=== PATIENT | female | born 1990 | race Caucasian/White ===

== ENCOUNTER → 2021-05-28 13:30 | Outpatient (BNVA) | payer OTHER, SELFPAY | PROVIDERS: Family Provider Internal Medicine; PCP Internal Medicine; Visit Provider Nurse Practitioner Women's Health | DX: Z12.4 Encounter for screening for malignant neoplasm of cervix (principal) | CPT/HCPCS: 88175 ==

== ENCOUNTER 2022-02-12 17:17 | Outpatient (CLI) | payer OTHER, SELFPAY ==
[2022-02-12 17:26] VITALS: RESP 16; TEMP 36.8
[2022-02-12 17:31] VITALS: BP 126/63; PULSE 78
[2022-02-12 17:46] VITALS: BP 121/60; PULSE 79
[2022-02-12 18:48] LABS: Total Volume, Urine 1275 mL
[2022-02-12 18:49] LABS: Urine Total Protein 7.3 mg/dL (0-150); Urine Total Protein 24 Hour 93.1 mg/24hr (0-150)
== END 2022-02-12 17:45 | disposition home or self-care (01) ==
LOC: OPOB 17:25 → OBGYN 17:25
PROVIDERS: Family Provider Internal Medicine; PCP Internal Medicine; Visit Provider Family Medicine
DX: O16.9 Unspecified maternal hypertension, unspecified trimester (principal); Z3A.00 Weeks of gestation of pregnancy not specified
CPT/HCPCS: 84156

== ENCOUNTER 2022-06-30 05:29 | Inpatient (IN) | payer OTHER, SELFPAY ==
--- NOTE | 2022-06-22 10:03 | P.ANESASSM_ITS ---
Pre-Anesthetic Assessment Height/Weight: Height 1.57 m Operation Date: 06/30/22 07:00 Proposed Procedures p Section With Tubal O34.219(Not Applicable) - Jenni Argueta MD Familial anesthetic complications: None Social No alcohol and No tobacco Exam alert, oriented x 3, clear to auscultation bilaterally and regular rate & rhythm Airway Mallampati: Class II Dentition: full Anesthetic Plan ASA status: 2 Anesthesia: Regional (specify below) (spinal) Risk of > 500 ml blood loss (7ml/kg in children): Yes, adequate IV access and fluids planned Medications/Allergies Home Medications Medication Instructions Recorded Confirmed Last Taken Type levonorgestrel 14 mcg/24 hrs (3 intrauterine 05/28/21 05/28/21 Unknown History yrs) 13.5 mg intrauterine device (Yamila) Allergies Allergy/AdvReac Type Severity Reaction Status Date / Time No Known Allergies Allergy Verified 05/28/21 13:08 [facility] Anesthesia Medical History (Updated 05/28/21 @ 13:10 by Kym Clark APN, RAH) No pertinent past medical history neghx:htn,dm,thyroid,dvt/pe PCP: Tory Ennis Surgical History (Updated 05/28/21 @ 11:46 by Kym Clark APN, RAH) History of section Primary low transverse section completed 12/06/[address] Kentrell Dejesus. Repeat low transverse section completed 10/06/[address] Sherita Machuca. Family History Grandfather Hypertension Stroke Great grandfather CAD (coronary artery disease) Great-grandfather Grandmother Hypertension Diabetes Great grandmother CAD (coronary artery disease) Great-grandmother Family/Other Diabetes Uncle CAD (coronary artery disease) Great uncle Cancer Aunt with colon cancer Data Anesthesia Cardiac Studies: No Data to Display
[2022-06-30] VITALS (13 sets, daily range): BP systolic 87–151; BP diastolic 40–87; PULSE 72–106; RESP 15–16; TEMP 36.2–36.8; O2SAT 97–99; BMI 43.0
[2022-06-30] MEDS: lactated ringers 1,000 ML 999 ML IV (06:00)
[2022-06-30 06:07] LABS: Hematocrit 41.3 % (37.0-47.0); Mean Corpuscular HGB Conc 33.9 g/dL (30.0-36.0); Mean Corpuscular Volume 94.5 fl (81-99); Mean Platelet Volume 10.6 fL (7.4-10.4); Platelet Count 225 10^3/cmm (130-400); Red Blood Count 4.37 10^6/uL (4.1-5.3); Red Cell Distribution Width 12.8 % (12.1-15.1)
[2022-06-30] MEDS: ceFAZolin 2,000 MG in sodium chloride 0.9% (plus) 50 ML 100 MG IV (06:34)
[2022-06-30] MEDS: citric acid-sodium citrate 30 mL UDC PO (06:35)
[2022-06-30] MEDS: famotidine 20 mg/2 mL INJ IVP (06:35)
[2022-06-30] MEDS: metoclopramide 5 mg/mL SDV 2 mL 10 MG IVP (06:35)
--- NOTE | 2022-06-30 06:55 | P.ANESUD_ITS ---
Pre-Anesthetic Update Pre-Anesthetic Assessment: Date of Surgery/Procedure: 06/30/22 Preop Janie gnosis: IUP Proposed Procedure: Operation Date: 06/30/22 07:00 Proposed Procedures p Section With Tubal O34.219(Not Applicable) - Jenni Argueta MD Any changes to Pre-Anesthetic Assessment?: No Last Intake: Intake Last Liquid Date 06/29/22 Last Liquid Time 23:45 Last Solid Date 06/29/22 Last Solid Time 23:15 Labs Last 48hrs: Short CBC 06/30/22 Range/Units 05:50 WBC 9.0 (4.0-10.0) 10^3/ uL Hgb 14.0 (11.5-15.3) g/dL Hct 41.3 (37.0-47.0) % MCV 94.5 (81-99) fl Plt Count 225 (130-400) 10^3/c mm Vitals: Temperature 98.2 F 02/12/22 17:26 Pulse Rate 96 06/30/22 05:56 Pulse Rhythm 06/30/22 06:23 Pulse Strength 3+ Normal 06/30/22 06:23 Respiratory Rate 16 06/30/22 05:58 Respiratory Effort Non-Labored 06/30/22 06:23 Respiratory Depth Normal 06/30/22 06:23 Respiratory Patter n 06/30/22 06:23 Blood Pressure 137/79 06/30/22 05:56 Oxygen Delivery Me thod 06/30/22 06:23 Exam: Pre-Anes Outpt Exam: alert and oriented x 3 Cardiac Studies: No Data to Display
--- NOTE | 2022-06-30 09:11 | P.OP_ITS ---
Operative Report Date of procedure: June 30, 2022 Pre-op diagnosis: IUP at 39 weeks 1 day gestation Repeat section Desired permanent surgical sterilization Post-op diagnosis: Same Procedure done: Repeat low transverse section Bilateral tubal ligation Specimens removed/disposition: Vertex female , Apgars 9 and 9, weight 3580 g, 7 pounds 14 ounces. Surgeon: Jenni Argueta MD Estimated blood loss (mL): 500 IV fluids (mL): 1,200 Urine output (mL): 200 Complications: None Procedure: After informed consent the patient was taken to the OR where spinal anesthesia was administered. She was prepped and draped in normal sterile fashion in dorsal supine position with a left lateral tilt. After adequate spinal anesthesia was verified, a Pfannenstiel skin incision was made through the previous scar and carried through to the underlying layer of fascia sharply. The fascial incision was then extended laterally using the Mayos. The fascia was grasped with Shu clamps and the underlying rectus muscles were dissected off. The peritoneum was entered bluntly and the incision site was manually stretched. The bladder blade was inserted. The vesicouterine peritoneum was a little scarred but was entered sharply using the Metzenbaums and the bladder flap was then created digitally. The bladder blade was then reinserted. Uterine incision was made in a transverse fashion in the lower uterine segment. Amniotic rupture of membranes was performed sharply with clear fluid. The was delivered vertex with bulb suction of the mouth and nares at delivery. The cord was clamped and cut and the was handed to the waiting pediatric team. Cord blood was obtained. The placenta was then delivered using fundal pressure. The uterus was then exteriorized from the abdomen and a dry sponge was used to clear the uterus of clots and debris. The lower uterine segment was noted to be extremely thin. The uterus was repaired using 0 chromic in a running locked fashion. A second layer of the same suture was used in an imbricating manner. The left fallopian tube was then grasped with a Vianey and a midportion of the tube was ligated and excised. A segment of the left tube was sent to pathology. Tubal ostia were visualized. Cut portions of the tube were coagulated using the Bovie. The right fallopian tube was then grasped with a Vianey and a proximal portion of the tube was ligated and excised. Segment of the tube was sent to pathology. Tubal ostia were identified. The cut portions of the tube were coagulated using the Bovie. The uterus was then returned to the abdomen. Irrigation was used to clear the gutters of clots and debris and the uterine incision was reinspected for hemostasis. The peritoneum was then reapproximated using 4-0 Vicryl in a running fashion. The fascia was then reapproximated using 0 Vicryl in a running fashion. The subcutaneous tissue was irrigated and the subcutaneous layer was reapproximated using 4-0 Vicryl in a running fashion. The skin was then reapproximated using 4-0 Vicryl on a Tre needle. Steri- Strips and a pressure bandage were applied and patient went to recovery in good condition.
--- NOTE | 2022-06-30 09:11 | PM.OPHPUD ---
Labor & Delivery H&P Update Date of Procedure: June 30, 2022 Date H&P Performed: 06/24/22 Admission Diagnosis: at 39 weeks 1 Repeats section Desired permanent surgical sterilization Preop diagnosis: IUP Planned procedure: Operation Date: 06/30/22 07:00 Proposed Procedures p Section With Tubal O34.219(Not Applicable) - Jenni Argueta MD
[2022-06-30] MEDS: lactated ringers 1,000 ML 125 ML IV (09:20)
[2022-06-30] MEDS: diphenhydrAMINE 50 mg/mL SDV 1mL 25 MG IVP ×2 (11:55→20:17)
[2022-06-30] MEDS: HYDROcodone-acetaminophen 5-325 mg Tablet PO (12:47)
--- NOTE | 2022-06-30 13:56 | ANE.PACU2 ---
Inpatient post-anesthesia follow up: Airway intact: Yes Vital signs: Temperature 97.3 F Pulse Rate 78 Respiratory Rate 16 Blood Pressure 101/40 Pulse Oximetry 98 Oxygen Delivery Me thod Room Air Oxygen Flow Rate Fraction of Inspir ed Oxygen Hydration adequate: Yes Nausea and vomiting: No Pain level: 2 Mental status: Baseline
[2022-06-30] MEDS: ketorolac 30 mg/mL INJ IVP ×2 (14:22→20:16)
[2022-06-30] MEDS: lanolin oint 7 gm 1 APPLIC TOPICAL (17:00)
[2022-06-30] MEDS: docusate sodium 100 mg Capsule PO (20:15)
[2022-06-30] MEDS: ferrous sulfate EC 325 mg Tablet PO (20:15)
[2022-06-30 21:52] LABS: Hematocrit 38.3 % (37.0-47.0); Hemoglobin 12.9 g/dL (11.5-15.3); Mean Corpuscular HGB Conc 33.7 g/dL (30.0-36.0); Mean Platelet Volume 10.4 fL (7.4-10.4); Platelet Count 183 10^3/cmm (130-400); Red Blood Count 4.03 10^6/uL (4.1-5.3); Red Cell Distribution Width 12.8 % (12.1-15.1); White Blood Count 10.2 10^3/uL (4.0-10.0)
[2022-07-01] MEDS: diphenhydrAMINE 50 mg/mL SDV 1mL 25 MG IVP (02:04)
[2022-07-01] MEDS: ketorolac 30 mg/mL INJ IVP (02:04)
[2022-07-01 03:52] VITALS: BP 116/72; PULSE 95; RESP 16; TEMP 36.7; O2SAT 96
[2022-07-01] MEDS: docusate sodium 100 mg Capsule PO ×2 (07:51→18:20)
[2022-07-01] MEDS: prenatal vitamin Capsule 1 CAP PO (07:51)
[2022-07-01] MEDS: HYDROcodone-acetaminophen 5-325 mg Tablet PO ×4 (07:51→22:36)
[2022-07-01] MEDS: ferrous sulfate EC 325 mg Tablet PO (07:51)
--- NOTE | 2022-07-01 12:49 | P.DS_ITS ---
Discharge Providers Date of Admission: 06/30/22 05:29 Date of Discharge: July 01, 2022 Attending Provider at Admission: Jenni Argueta MD Attending Provider at Discharge: Jenni Argueta MD Primary Care Provider: June Ennis MD Reason for Visit 2 Reason for Visit: edc07/06/22 Physical Exam Urinary Catheter Management: Venegas Latex: Cath Placed During This Visit: yes, but has since been removed by the nurse Reason for Continuing Indwelling Catheter: Decision to DC Catheter Urinary Catheter Date of Insertion: 06/30/22 Urinary Catheter Time of Insertion: 07:18 Date Urinary Catheter Removed: 06/30/22 Time Urinary Catheter Discontinued: 17:00 Discharge Data Studies Completed and Pending Completed Studies During Hospitalization Category Date Time Status Pathology: Surgical [PTH] Routine Pth 06/30/22 10:55 Completed Laboratory Results WBC 10.2 10^3/uL (4.0-10.0) H 06/30/22 21:25 RBC 4.03 10^6/uL (4.1-5.3) L 06/30/22 21:25 Hgb 12.9 g/dL (11.5-15.3) 06/30/22 21:25 Hct 38.3 % (37.0-47.0) 06/30/22 21:25 MCV 95.0 fl (81-99) 06/30/22 21:25 MCH 32.0 pg (28.0-34.0) 06/30/22 21:25 MCHC 33.7 g/dL (30.0-36.0) 06/30/22 21:25 RDW 12.8 % (12.1-15.1) 06/30/22 21:25 Plt Count 183 10^3/cmm (130-400) 06/30/22 21:25 MPV 10.4 fL (7.4-10.4) 06/30/22 21:25 Vitals Last Vital Signs Temp 98.1 F 07/01/22 03:52 Pulse 95 07/01/22 03:52 Resp 16 07/01/22 03:52 BP 116/72 07/01/22 03:52 Pulse Ox 96 07/01/22 03:52 O2 Del Method 07/01/22 03:52 Discharge Plan Discharge Patient Disposition: Home Condition: Stable Prescriptions: No Action Yamila 14 mcg/24 hrs (3 yrs) 13.5 mg intrauterine device intrauterine Patient Instructions: Opioid Safety Coding Level of Care Code Acute Chg FW DC note
--- NOTE | 2022-07-01 12:49 | PM.PN ---
Subjective Subjective: Patient is ambulating, passing flatus, pain is well tolerated. Vitals/I&O/Wt Last Vital Signs Temp 98.1 F 07/01/22 03:52 Pulse 95 07/01/22 03:52 Resp 16 07/01/22 03:52 BP 116/72 07/01/22 03:52 Pulse Ox 96 07/01/22 03:52 O2 Del Method 07/01/22 03:52 06/30/22 07/01/22 07/01/22 22:59 06:59 14:59 Intake Total 999 / 2049 Output Total 400 / 600 500 / 500 Balance 600 / 1450 -500 / -500 Weight last 48 hrs Weight 106.594 kg Physical Exam Narrative: Alert and oriented, sitting in bedside chair, heart regular rate and rhythm, lungs clear to auscultation bilaterally, bowel sounds present, abdomen is soft with appropriate postoperative tenderness, incision is clean and intact with Steri-Strips in place. Extremities have edema but no calf tenderness Urinary Catheter Management: Venegas Latex: Cath Placed During This Visit: yes, but has since been removed by the nurse Reason for Continuing Indwelling Catheter: Decision to DC Catheter Urinary Catheter Date of Insertion: 06/30/22 Urinary Catheter Time of Insertion: 07:18 Date Urinary Catheter Removed: 06/30/22 Time Urinary Catheter Discontinued: 17:00 Data 06/30/22 21:25 A&P Assessment and plan (1) S/P repeat low transverse : With bilateral tubal ligation. Doing well. Continue routine postoperative care. likely discharge home tomorrow (2) Tubal ligation status: Attestations Medical Necessity Statement*: Routine and postoperative care Coding Level of Care Code Acute Powder Carrier for Chg Fwd Diagnoses S/P repeat low transverse Z98.891 Tubal ligation status Z98.51
[2022-07-01 14:29] VITALS: BP 123/80; PULSE 103; RESP 17; TEMP 36.9
[2022-07-01] MEDS: ibuprofen 800 mg tablet PO ×2 (15:42→21:02)
[2022-07-01 22:40] VITALS: BP 138/90; PULSE 88; RESP 15; TEMP 36.6; O2SAT 98
[2022-07-02 04:19] VITALS: BP 123/77; PULSE 83; RESP 15; TEMP 36.7; O2SAT 98
[2022-07-02] MEDS: HYDROcodone-acetaminophen 5-325 mg Tablet PO ×2 (04:27→09:20)
--- NOTE | 2022-07-02 08:03 | P.DS_ITS ---
Discharge Providers Date of Admission: 06/30/22 05:29 Date of Discharge: July 02, 2022 Attending Provider at Admission: Jenni Argueta MD Attending Provider at Discharge: Jenni Argueta MD Primary Care Provider: June Ennis MD Diagnoses at Discharge Discharge Diagnosis (1) S/P repeat low transverse : Status: Acute (2) Tubal ligation status: Status: Acute Reason for Visit Reason for Visit: edc07/06/22 Hospital Course Hospital Course This is a 32-year-old G3 now P3 who was admitted for a scheduled repeat section with bilateral tubal ligation. There were no complications of the procedure and she did well postoperatively. She was ambulating, tolerating a regular diet, and had good pain control on the day of discharge. Physical Exam 2 Narrative: Resting in bed, alert and oriented, heart regular rate and rhythm, lungs clear to auscultation bilaterally, abdomen is soft and nontender, incision is clean and intact but Steri-Strips are rather moist, extremities have edema but no calf tenderness Urinary Catheter Management: Venegas Latex: Cath Placed During This Visit: yes, but has since been removed by the nurse Reason for Continuing Indwelling Catheter: Decision to DC Catheter Urinary Catheter Date of Insertion: 06/30/22 Urinary Catheter Time of Insertion: 07:18 Date Urinary Catheter Removed: 06/30/22 Time Urinary Catheter Discontinued: 17:00 Discharge Data Studies Completed and Pending Completed Studies During Hospitalization Category Date Time Status Pathology: Surgical [PTH] Routine Pth 06/30/22 10:55 Completed Laboratory Results WBC 10.2 10^3/uL (4.0-10.0) H 06/30/22 21:25 RBC 4.03 10^6/uL (4.1-5.3) L 06/30/22 21:25 Hgb 12.9 g/dL (11.5-15.3) 06/30/22 21:25 Hct 38.3 % (37.0-47.0) 06/30/22 21:25 MCV 95.0 fl (81-99) 06/30/22 21:25 MCH 32.0 pg (28.0-34.0) 06/30/22 21:25 MCHC 33.7 g/dL (30.0-36.0) 06/30/22 21:25 RDW 12.8 % (12.1-15.1) 06/30/22 21:25 Plt Count 183 10^3/cmm (130-400) 06/30/22 21:25 MPV 10.4 fL (7.4-10.4) 06/30/22 21:25 Vitals Last Vital Signs Temp 98.0 F 07/02/22 04:19 Pulse 83 07/02/22 04:19 Resp 15 07/02/22 04:19 BP 123/77 07/02/22 04:19 Pulse Ox 98 07/02/22 04:19 O2 Del Method 07/02/22 04:19 Discharge Plan Discharge Patient Disposition: Home Condition: Stable Prescriptions: New docusate sodium 100 mg Capsule 100 mg PO BID Qty: 60 0RF ibuprofen 800 mg Tablet 800 mg PO TID Qty: 40 0RF hydrocodone-acetaminophen 5-325 mg Tablet 1 - 2 tab PO Q4H PRN (Reason: Moderate To Severe Pain) Qty: 15 0RF Discontinued Yamila 14 mcg/24 hrs (3 yrs) 13.5 mg intrauterine device intrauterine Discharge Orders: Discharge Order (Routine); Ordered 07/02/22 Ordered By: Jenni Argueta Discharge Diet: Usual diet Discharge Activity: Limit activity as instructed Patient Instructions: Opioid Safety Activity Restrictions/Additional Instructions: NPV for 6 weeks. No lifting > 10 lbs for 2 weeks. Discharge Attestations Time Spent in Discharge Care*: less than 30 min Quality Metrics Clinical Quality Measures [ No reported AMI, CVA or VTE this stay] Coding Level of Care Code Acute Chg FW DC note Diagnoses S/P repeat low transverse Z98.891 Tubal ligation status Z98.51
[2022-07-02] MEDS: prenatal vitamin Capsule 1 CAP PO (09:19)
[2022-07-02] MEDS: ibuprofen 800 mg tablet PO (09:19)
[2022-07-02] MEDS: docusate sodium 100 mg Capsule PO (09:19)
[2022-07-02] MEDS: simethicone 80 mg Chew PO (09:23)
[2022-07-02 09:30] VITALS: BP 117/77; PULSE 85; RESP 17; TEMP 36.8
== END 2022-07-02 10:10 | disposition home or self-care (01) | DRG 785 ==
PROVIDERS: Admitting Provider Family Medicine; PCP Internal Medicine; Visit Provider Family Medicine
PROC: 10D00Z1 Extraction of Products of Conception, Low, Open Approach (ICD-10-PCS; CPT 59514; principal; 2022-06-30 07:00)
DX: O34.211 Maternal care for low transverse scar from previous cesarean delivery (principal); Z3A.39 39 weeks gestation of pregnancy; Z37.0 Single live birth; Z30.2 Encounter for sterilization
CPT/HCPCS: 36415; 51702; 59025; 59409; 85027; 88302; 96374; 96376; 98960; J0690; J1200; J1885; J2274; J2405; J2765; J3010; J3490; J7030; J7120